=== PATIENT | male | born 1950 | race Caucasian/White ===

== ENCOUNTER 2016-08-24 11:05 | Inpatient (IN) | payer OTHER ==
[2016-08-24 11:46] VITALS: BMI 21.5
--- NOTE | 2016-08-24 15:43 | HP ---
CIWA Score - CIWA Score Nausea/Vomitin Muscle Tremors: 3 Anxiety: 3 Agitation: 5 Paroxysmal Sweats: 3 Orientation: 0-Oriented Tacttile Disturbances: 1-Very Mild Itch/Numbness Auditory Disturbances: 0-None Visual Disturbances: 0-None Headache: 0-None Present CIWA-Ar Total Score: 18 Admission ROS BHS - HPI Chief Complaint: requesting inpatient detoxification from alcohol Allergies/Adverse Reactions: Allergies Allergy/AdvReac Type Severity Reaction Status Date / Time No Known Allergies Allergy Verified 08/24/16 14:22 History of Present Illness: 65 yo m with alcohol dependence, last in detox 1 year ago, c/o increased alcohol use for the last 2 months when he drinks 1-2 pints vodka daily, recently was admitted [facility] after sustaining injuries, now requestinginpatient detox as he is having alcohol withdrwal sx, no h/o seizures or DTs. PMHX trauma r toe, HIV+. ROS depression, anxiety, insomnia, diarrhea, sweats, tremors, Exam Limitations: No Limitations - Ebola screening Have you traveled outside of the country in the last 21 days: No Have you had contact with anyone from an Ebola affected area: No Have you been sick,other than usual withdrawal symptoms: No Do you have a fever: No - Review of Systems Constitutional: Chills, Malaise, Night Sweats, Weakness EENT: reports: No Symptoms Reported Respiratory: reports: No Symptoms reported Cardiac: reports: No Symptoms Reported GI: reports: Diarrhea, Nausea, Poor Appetite, Poor Fluid Intake, Abdominal cramping : reports: No Symptoms Reported Musculoskeletal: reports: Joint Swelling (right toe injured, seen in ED but no discharge patient with work up) Neuro: reports: Tremors, Weakness, Unsteady Gait Endocrine: reports: No Symptoms Reported Hematology: reports: No Symptoms Reported Psychiatric: reports: Judgement Intact, Orientated x3, Anxious, Depressed Other Systems: Reviewed and Negative Patient History - Patient Medical History Hx Anemia: No Hx Asthma: No Hx Chronic Obstructive Pulmonary Disease (COPD): No Hx Cancer: No Hx Cardiac Disorders: No Hx Congestive Heart Failure: No Hx Hypertension: No Hx Pacemaker: No HX Cerebrovascular Accident: No Hx Seizures: No Hx Dementia: No Hx Diabetes: No Hx Gastrointestinal Disorders: No Hx Liver Disease: No Hx Genitourinary Disorders: No Hx Sexually Transmitted Disorders: No Hx Renal Disease (ESRD): No Hx Thyroid Disease: No Hx Human Immunodeficiency Virus (HIV): Yes (on meds) Hx Hepatitis C: No Hx Depression: Yes Hx Suicide Attempt: No Hx Bipolar Disorder: No Hx Schizophrenia: No - Patient Surgical History Past Surgical History: Yes Hx Neurologic Surgery: No Hx Cataract Extraction: No Hx Cardiac Surgery: No Hx Lung Surgery: No Hx Breast Surgery: No Hx Breast Biopsy: No Hx Abdominal Surgery: No Hx Appendectomy: Yes (ruptured appendix ) Hx Cholecystectomy: No Hx Genitourinary Surgery: No Hx Section: No Hx Orthopedic Surgery: No Hx Hysterectomy: No Anesthesia Reaction: No - PPD History Previous Implant?: Yes Documented Results: Positive w/o proof Implanted On Prior R Admission?: No PPD to be Administered?: No - Reproductive History Patient is a Female of Child Bearing Age (11 -55 yrs old): No Patient : No - Smoking Cessation Smoking history: Current every day smoker Have you smoked in the past 12 months: Yes Aproximately how many cigarettes per day: 20 Hx Chewing Tobacco Use: No Initiated information on smoking cessation: Yes 'Breaking Loose' booklet given: 08/24/16 - Substance & Tx. History Hx Alcohol Use: Yes Hx Substance Use: No Substance Use Type: Alcohol Hx Substance Use Treatment: Yes - Substances Abused Alcohol Route: Oral Frequency: Daily Amount used: 1-2 pints Age of first use: 18 Date of Last Use: 08/24/16 Family Disease History - Family Disease History Family History: Denies Admission Physical Exam BHS - Vital Signs Vital Signs: Vital Signs - 24 hr 08/24/16 11:45 Temperature 96.7 F L Pulse Rate 105 H Respiratory 18 Rate Blood Pressure 149/87 - Physical General Appearance: Yes: Appropriately Dressed, Disheveled, Mild Distress, Thin , Tremorous, Irritable, Sweating, Anxious HEENTM: Yes: Within Normal Limits, EOMI, Hearing grossly Normal, Normal ENT Inspection, Normocephalic, Normal Voice, GALE, Pharynx Normal Respiratory: Yes: Within Normal Limits, Chest Non-Tender, Lungs Clear, Normal Breath Sounds, No Respiratory Distress, No Accessory Muscle Use Neck: Yes: Within Normal Limits, No masses,lesions,Nodules Breast: Yes: Breast Exam Deferred Cardiology: Yes: Within Normal Limits, Regular Rhythm, Regular Rate, S1, S2 Abdominal: Yes: Within Normal Limits, Normal Bowel Sounds, Non Tender, Flat, Soft Genitourinary: Yes: Within Normal Limits Back: Yes: Within Normal Limits, Normal Inspection Musculoskeletal: Yes: Within Normal Limits, full range of Motion, Other ( ambulates with cane due to right toe injury) Extremities: Yes: Normal Capillary Refill, Normal Range of Motion, Other (open wound right toe) Neurological: Yes: window glazier II-XII NML intact, Fully Oriented, Alert, Motor Strength 5/5, Normal Response, Depressed Affect Integumentary: Yes: Normal Color, Dry, Cold Lymphatic: Yes: Within Normal Limits - Addiitonal Findings: withdrawal sx present - Diagnostic (1) Alcohol dependence with uncomplicated withdrawal Current Visit: Yes Status: Acute (2) HIV (human immunodeficiency virus infection) Current Visit: Yes Status: Acute (3) Abrasion, right great toe, initial encounter Current Visit: Yes Status: Acute (4) PPD positive Current Visit: Yes Status: Acute Cleared for Admission [facility] - Detox or Rehab [facility] Level of Care: Medically Managed Detox Regimen/Protocol: Librium [facility] Breath Alcohol Content Breath Alcohol Content: 0.013 Urine Drug Screen - Results Drug Screen Negative: Yes
[2016-08-24] MEDS ORDERED: NICOTINE POLACRILEX 4 MG GUM BC PRN (15:50)
[2016-08-24] MEDS ORDERED: MAGNESIUM HYDROX 2400MG/30ML ORAL SUSPENSION 30 ML CUP PO PRN (15:50)
[2016-08-24] MEDS ORDERED: IBUPROFEN 400 MG TABLET (FP) PO PRN (15:50)
[2016-08-24] MEDS ORDERED: P-EPHED 60MG/TRIPROLIDI 2.5MG TABLET PO PRN (15:50)
[2016-08-24] MEDS ORDERED: MAG HYDROX/AL HYDROX/SIMETH 30 ML UNIT-DOSE CUP PO PRN (15:50)
[2016-08-24] MEDS ORDERED: chlordiazePOXIDE HCL 25 MG CAPSULE PO PRN (15:50)
[2016-08-24] MEDS ORDERED: MENTHOL/PHENOL 1 EACH UD MM PRN (15:50)
[2016-08-24] MEDS ORDERED: diphenhydrAMINE HCL 50 MG CAPSULE PO PRN (15:50)
[2016-08-24] MEDS ORDERED: MAGNESIUM CITRATE 300 ML BOTTLE PO PRN (15:50)
[2016-08-24] MEDS ORDERED: guaiFENesin/D-METHORPHAN HB 10 ML UNIT-DOSE CUPS PO PRN (15:50)
[2016-08-24] MEDS ORDERED: LOPERAMIDE HCL 2 MG CAPSULE PO PRN (15:50)
[2016-08-24] MEDS: chlordiazePOXIDE HCL 25 MG CAPSULE PO SCH ×2 (19:28→22:20)
[2016-08-24] MEDS: NICOTINE 21 MG/24 HOURS TOPICAL PATCH TD SCH (19:40)
[2016-08-24] MEDS ORDERED: THIAMINE HCL 100 MG TABLET (FP) PO SCH (22:00)
[2016-08-24] MEDS: ACETAMINOPHEN 325 MG TABLET (FP) PO PRN (22:22)
[2016-08-24 22:42] LABS: URINE APPEARANCE CLEAR; URINE BILIRUBIN NEGATIVE (NEGATIVE); URINE COLOR LTYELLOW; URINE GLUCOSE (UA) NEGATIVE (NEGATIVE); URINE KETONE 1+ (NEGATIVE); URINE LEUK ESTERASE NEGATIVE (NEGATIVE); URINE NITRITE NEGATIVE (NEGATIVE); URINE PROTEIN NEGATIVE (NEGATIVE); URINE UROBILINOGEN NEGATIVE E.U./dl (0.2-1.0)
[2016-08-24 22:43] LABS: URINE BLOOD 1+ (NEGATIVE)
[2016-08-24 22:56] LABS: URINE RBC <1 /hpf (0-3); URINE WBC <1 /hpf (3-5)
[2016-08-25] MEDS: chlordiazePOXIDE HCL 25 MG CAPSULE PO SCH ×2 (05:39→11:07)
[2016-08-25 09:35] VITALS: BP 100/75; PULSE 134; TEMP 97
[2016-08-25] MEDS ORDERED: PRENATAL VITAMINS W/ FOLIC ACID TABLET (FP) PO SCH (10:00)
--- NOTE | 2016-08-25 10:09 | EKG ---
Test Reason : Blood Pressure : / mmHG Vent. Rate : 096 BPM Atrial Rate : 096 BPM P-R Int : 150 ms QRS Dur : 078 ms QT Int : 364 ms P-R-T Axes : 075 -27 039 degrees QTc Int : 459 ms NORMAL SINUS RHYTHM NO PREVIOUS ECGS AVAILABLE Confirmed by CHRISTINE SANTOS MD ([id number]) on 08/25/2016 10:08:55 AM Referred By: Confirmed By:CHRISTINE SANTOS MD
[2016-08-25 10:22] LABS: MCH 29.7 pg (25.7-33.7); MCHC 33.4 g/dl (32.0-35.9); MEAN CELL VOLUME 88.9 fl (80-96); MEAN PLT VOLUME 8.6 fl (7.5-11.1); PLATELET COUNT 121 K/MM3 (134-434); RDW 13.8 % (11.9-15.9); WHITE BLOOD COUNT 5.8 K/mm3 (4.0-10.0)
[2016-08-25] MEDS: NICOTINE 21 MG/24 HOURS TOPICAL PATCH TD SCH (11:06)
[2016-08-25 11:22] LABS: COCKROFT - GAULT 76.64; CREATININE 0.9 mg/dL (0.7-1.3); GLUCOSE,RANDOM 140 mg/dL (74-106)
[2016-08-25 11:23] LABS: ALBUMIN 4.4 g/dl (3.4-5.0); ALK PHOS 92 U/L (45-117); ANION GAP 15 (8-16); BILIRUBIN,TOTAL 1.1 mg/dL (0.2-1.0); CALCIUM 9.4 mg/dL (8.5-10.1); CO2 27 mmol/L (21-32); SGOT/AST 93 U/L (15-37); SGPT/ALT 61 U/L (12-78); TOT PROT 8.6 g/dl (6.4-8.2)
--- NOTE | 2016-08-25 11:32 | CONSULT ---
[id number] [facility] Identifying data: This is 65 years old H male,residing alone,supported by [facility] admitted to [address] [place] [address] for Alcohol dependence. Substance Abuse History: Reports drinking since 18 yo,1-2 pints of vodka daily, Medical History: Significant for HIV+. Psychiatric History: Reports long and extensive history of depression with 2 psychiatris hospitalizations,most recent to [facility] in [facility] a few years ago.Patient is poor historian,not able to give a list of his psychiatric medications except Celexa 40 mg po daily.he has no regular psychiatric follow up at present is not willing to restart his mediactions at present. Physical/Sexual Abuse/Trauma History: denies Mental Status Exam - Mental Status Exam Alert and Oriented to: Time, Place, Person Cognitive Function: Grossly Intact Mood: Nervous, Irritable Affect: Labile Patient Behavior: Restless, Cooperative Speech Pattern: Clear Voice Loudness: Normal Thought Process: Goal Oriented Thought Disorder: Being Controlled Hallucinations: Denies Suicidal Ideation: Denies Homicidal Ideation: Denies Insight/Judgement: Poor Sleep: Fair Appetite: Fair Muscle strength/Tone: Normal Gait/Station: Normal Psychiatric Findings - Problem List ([place] 1, 2,3) (1) Alcohol dependence with uncomplicated withdrawal Status: Chronic (2) HIV (human immunodeficiency virus infection) Status: Chronic (3) PPD positive Status: Chronic (4) Alcohol-induced mood disorder Status: Chronic - Initial Treatment Plan Initial Treatment Plan: Will monitor progress.Consider antidepressants,mood stabilizers if needed.
--- NOTE | 2016-08-25 12:11 | PN ---
S CIWA - CIWA Score Nausea/Vomitin Muscle Tremors: 2 Anxiety: 2 Agitation: 3 Paroxysmal Sweats: 3 Orientation: 0-Oriented Tacttile Disturbances: 1-Very Mild Itch/Numbness Auditory Disturbances: 0-None Visual Disturbances: 0-None Headache: 2-Mild CIWA-Ar Total Score: 15 S Progress Note (SOAP) Subjective: Anxiety, shakes, sweats Objective: 08/25/16 12:07 Vital Signs - 8 hr 08/25/16 09:34 Temperature 97 F L Pulse Rate 134 H Respiratory 18 Rate Blood Pressure 100/75 Laboratory Last Values WBC 5.8 K/mm3 (4.0-10.0) 08/25/16 06:16 RBC 3.97 M/mm3 (4.00-5.60) L 08/25/16 06:16 Hgb 11.8 GM/dL (11.7-16.9) 08/25/16 06:16 Hct 35.3 % (35.4-49) L 08/25/16 06:16 MCV 88.9 fl (80-96) 08/25/16 06:16 MCHC 33.4 g/dl (32.0-35.9) 08/25/16 06:16 RDW 13.8 % (11.9-15.9) 08/25/16 06:16 Plt Count 121 K/MM3 (134-434) L 08/25/16 06:16 MPV 8.6 fl (7.5-11.1) 08/25/16 06:16 Sodium 132 mmol/L (136-145) L 08/25/16 06:16 Potassium 3.8 mmol/L (3.5-5.1) 08/25/16 06:16 Chloride 90 mmol/L (98-107) L 08/25/16 06:16 Carbon Dioxide 27 mmol/L (21-32) 08/25/16 06:16 Anion Gap 15 (8-16) 08/25/16 06:16 BUN 12 mg/dL (7-18) 08/25/16 06:16 Creatinine 0.9 mg/dL (0.7-1.3) 08/25/16 06:16 Creat Clearance w eGFR > 60 (>60) 08/25/16 06:16 Random Glucose 140 mg/dL (74-106) H 08/25/16 06:16 Calcium 9.4 mg/dL (8.5-10.1) 08/25/16 06:16 Total Bilirubin 1.1 mg/dL (0.2-1.0) H 08/25/16 06:16 AST 93 U/L (15-37) H 08/25/16 06:16 ALT 61 U/L (12-78) 08/25/16 06:16 Alkaline Phosphatase 92 U/L (45-117) 08/25/16 06:16 Total Protein 8.6 g/dl (6.4-8.2) H 08/25/16 06:16 Albumin 4.4 g/dl (3.4-5.0) 08/25/16 06:16 Urine Color Ltyellow 08/24/16 21:30 Urine Appearance Clear 08/24/16 21:30 Urine pH 6.0 (5.0-8.0) 08/24/16 21:30 Ur Specific [place] 1.008 (1.001-1.035) 08/24/16 21:30 Urine Protein Negative (NEGATIVE) 08/24/16 21:30 Urine Glucose (UA) Negative (NEGATIVE) 08/24/16 21:30 Urine Ketones 1+ (NEGATIVE) H 08/24/16 21:30 Urine Blood 1+ (NEGATIVE) H 08/24/16 21:30 Urine Nitrite Negative (NEGATIVE) 08/24/16 21:30 Urine Bilirubin Negative (NEGATIVE) 08/24/16 21:30 Urine Urobilinogen Negative E.U./dl (0.2-1.0) 08/24/16 21:30 Ur Leukocyte Esterase Negative (NEGATIVE) 08/24/16 21:30 Urine RBC <1 /hpf (0-3) 08/24/16 21:30 Urine WBC <1 /hpf (3-5) 08/24/16 21:30 Ur Epithelial Cells Rare /hpf (FEW) 08/24/16 21:30 Labs noted, mild hyponatremia Assessment: 08/25/16 12:08 withdrawal sx hyponatremia Plan: continue detox repeat BMP
[2016-08-25] MEDS: ACETAMINOPHEN 325 MG TABLET (FP) PO PRN (12:42)
[2016-08-25] MEDS ORDERED: chlordiazePOXIDE HCL 25 MG CAPSULE PO SCH (17:00)
[2016-08-26] MEDS ORDERED: chlordiazePOXIDE 5 MG CAPSULE PO SCH (17:00)
[2016-08-27] MEDS ORDERED: chlordiazePOXIDE HCL 10 MG CAPSULE PO SCH (17:00)
--- NOTE | 2016-10-07 16:36 | DS ---
[facility] Detox Discharge Summary Admission Date: 08/24/16 Discharge Date: 08/25/16 - History Present History: Alcohol Dependence Pertinent Past History: HIV infection PPD+ - Physical Exam Results Vital Signs: Vital Signs Temperature 97 F L 08/25/16 09:34 Pulse Rate 134 H 08/25/16 09:34 Respiratory Rate 18 08/25/16 09:34 Blood Pressure 100/75 08/25/16 09:34 O2 Sat by Pulse Oximetry (%) Pertinent Admission Physical Exam Findings: Withdrawal sx. Laboratory Last Values WBC 5.8 K/mm3 (4.0-10.0) 08/25/16 06:16 RBC 3.97 M/mm3 (4.00-5.60) L 08/25/16 06:16 Hgb 11.8 GM/dL (11.7-16.9) 08/25/16 06:16 Hct 35.3 % (35.4-49) L 08/25/16 06:16 MCV 88.9 fl (80-96) 08/25/16 06:16 MCHC 33.4 g/dl (32.0-35.9) 08/25/16 06:16 RDW 13.8 % (11.9-15.9) 08/25/16 06:16 Plt Count 121 K/MM3 (134-434) L 08/25/16 06:16 MPV 8.6 fl (7.5-11.1) 08/25/16 06:16 Sodium 132 mmol/L (136-145) L 08/25/16 06:16 Potassium 3.8 mmol/L (3.5-5.1) 08/25/16 06:16 Chloride 90 mmol/L (98-107) L 08/25/16 06:16 Carbon Dioxide 27 mmol/L (21-32) 08/25/16 06:16 Anion Gap 15 (8-16) 08/25/16 06:16 BUN 12 mg/dL (7-18) 08/25/16 06:16 Creatinine 0.9 mg/dL (0.7-1.3) 08/25/16 06:16 Creat Clearance w eGFR > 60 (>60) 08/25/16 06:16 Random Glucose 140 mg/dL (74-106) H 08/25/16 06:16 Calcium 9.4 mg/dL (8.5-10.1) 08/25/16 06:16 Total Bilirubin 1.1 mg/dL (0.2-1.0) H 08/25/16 06:16 AST 93 U/L (15-37) H 08/25/16 06:16 ALT 61 U/L (12-78) 08/25/16 06:16 Alkaline Phosphatase 92 U/L (45-117) 08/25/16 06:16 Total Protein 8.6 g/dl (6.4-8.2) H 08/25/16 06:16 Albumin 4.4 g/dl (3.4-5.0) 08/25/16 06:16 Urine Color Ltyellow 08/24/16 21:30 Urine Appearance Clear 08/24/16 21:30 Urine pH 6.0 (5.0-8.0) 08/24/16 21:30 Ur Specific [place] 1.008 (1.001-1.035) 08/24/16 21:30 Urine Protein Negative (NEGATIVE) 08/24/16 21:30 Urine Glucose (UA) Negative (NEGATIVE) 08/24/16 21:30 Urine Ketones 1+ (NEGATIVE) H 08/24/16 21:30 Urine Blood 1+ (NEGATIVE) H 08/24/16 21:30 Urine Nitrite Negative (NEGATIVE) 08/24/16 21:30 Urine Bilirubin Negative (NEGATIVE) 08/24/16 21:30 Urine Urobilinogen Negative E.U./dl (0.2-1.0) 08/24/16 21:30 Ur Leukocyte Esterase Negative (NEGATIVE) 08/24/16 21:30 Urine RBC <1 /hpf (0-3) 08/24/16 21:30 Urine WBC <1 /hpf (3-5) 08/24/16 21:30 Ur Epithelial Cells Rare /hpf (FEW) 08/24/16 21:30 RPR Titer Nonreactive (NONREACTIVE) 08/25/16 06:16 labs noted - Treatment Patient has Accepted a Rehab Referral to: [facility] - Medication Discharge Medications: Ambulatory Orders Emtricitabine/Tenofovir [Truvada] 1 tab PO DAILY 08/24/16 - Diagnosis (1) Alcohol dependence with uncomplicated withdrawal Status: Acute (2) Alcohol-induced mood disorder Status: Acute (3) HIV (human immunodeficiency virus infection) Status: Chronic (4) PPD positive Status: Chronic - AMA Did Patient Leave Against Medical Advice: Yes
== END 2016-08-25 17:07 | disposition left against medical advice (07) | DRG 770 ==
LOC: YASAS 11:05 → Y3N 18:06
PROVIDERS: ADMIT Internal Medicine; ATTEND Internal Medicine
PROC: HZ2ZZZZ Detoxification Services for Substance Abuse Treatment (ICD-10-PCS; principal; 2016-08-25)
DX: F10.230 Alcohol dependence with withdrawal, uncomplicated (principal); F10.24 Alcohol dependence with alcohol-induced mood disorder; R76.11 Nonspecific reaction to tuberculin skin test without active tuberculosis; Z21 Asymptomatic human immunodeficiency virus [HIV] infection status; R26.2 Difficulty in walking, not elsewhere classified; F17.210 Nicotine dependence, cigarettes, uncomplicated; S91.101A Unspecified open wound of right great toe without damage to nail, initial encounter; X58.XXXA Exposure to other specified factors, initial encounter; Y93.9 Activity, unspecified
CPT/HCPCS: 36415; 80053; 81003; 81015; 85027; 86593; 93005; 93010